=== PATIENT | female | born 1995 | race Caucasian/White ===

== ENCOUNTER → 2016-08-22 | Outpatient (CLI) | payer OTHER ==
[~2016-08-22] MED LIST: GADAVIST IV PRN; GLUCAGON FOR INJ 1 MG VIAL IM SCH; GLUCAGON FOR INJ 1 MG VIAL ONE; NURSING VERBAL MED ORDER ONE
--- NOTE | 2016-08-22 17:40 | DIAGNOSTIC IMAGING REPORT ---
MR ENTEROGRAPHY CLINICAL HISTORY: Crohn's disease. Chronic anal fissures. COMPARISON STUDY: No priors TECHNIQUE: MR enterography of the abdomen and pelvis is performed utilizing various T1 and T2-weighted sequences in the axial and coronal planes. Contrast-enhanced sequences are acquired following the IV administration of 6 cc of Gadavist. Dynamic coronal imaging is performed and was assessed on an independent [employer] workstation. FINDINGS: The small bowel and colon are normal in course and caliber. No thick walled or hyperemic bowel loops are identified. Normal peristaltic motion is seen on the dynamic sequences. There is no evidence of stricture or mass lesion. The distal/terminal ileum is normal as visualized. There is [id number] fecal retention throughout the colon. There is mild fecalization of the distal small bowel. No abdominal ascites is seen. This examination was not protocoled to assess the perianal soft tissues. No perianal fistula or abscess is suggested on the provided images. The liver, gallbladder, spleen, adrenal glands, kidneys, and pancreas are normal as visualized. The abdominal aorta is normal in course and caliber. No abdominal lymphadenopathy is identified. The pelvic viscera are normal as imaged. The visualized bony structures are normal as imaged. IMPRESSION: 1. Normal MR enterography. There is no MRI evidence of active Crohn's disease at the time of examination. 2. Moderate to severe constipation. 3. The perianal soft tissues are normal as visualized. There is no evidence of perianal abscess or fistula. Dictated: 08/22/2016 4:36 PM Transcribed: 08/22/2016 5:40 PM [facility] Electronically signed by: Dale Layne M.D. 08/22/2016 8:45 PM Dictated Date/Time: 08/22/2016 4:36 PM
== END | disposition home or self-care (01) ==
LOC: C.MRI 13:14
PROVIDERS: ATTEND Internal Medicine Gastroenterology
DX: K50.10 Crohn's disease of large intestine without complications (principal); K59.00 Constipation, unspecified